=== PATIENT | male | born 1980 | race Hispanic/Latino ===

== ENCOUNTER 2018-10-15 15:01 | Emergency (ER) | payer SELFPAY ==
[~2018-10-15] VITALS: Ht 167.6 cm; Wt 74.0 kg
[2018-10-15 15:50] VITALS: BP 142/54
== END 2018-10-15 15:50 | disposition home or self-care (01) | DRG 607 ==
LOC: ED 15:01
DX: R21 Rash and other nonspecific skin eruption (principal)